=== PATIENT | male | born 2000 | race Caucasian/White ===

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

== ENCOUNTER 2022-04-17 13:29 | Emergency (ER) | payer BC, SELFPAY ==
[2022-04-17 13:59] VITALS: BP 128/70; PULSE 60; RESP 18; TEMP 36.7; O2SAT 100
--- NOTE | 2022-04-17 15:34 | ED.GENADULT ---
HPI - General Adult General Chief complaint: Upper Respiratory Infection Stated complaint: flu exposure History of Present Illness HPI narrative: Patient is a 21-year-old male who presents to the the medical center via POV accompanied by girlfriend for evaluation of nausea and fatigue that started yesterday. No relief with DayQuil. Nothing worsens symptoms. He reports his girlfriend recently tested positive for influenza A and mononucleosis prompting today's visit. Related Data Home Medications Medication Instructions Recorded Confirmed cetirizine 10 mg tablet (Zyrtec) 10 mg PO DAILY 04/17/22 04/17/22 Allergies Allergy/AdvReac Type Severity Reaction Status Date / Time amoxicillin Allergy Unknown ITCHY RASH Verified 04/17/22 14:36 Review of Systems Review of Systems: Denies history of COPD, bronchitis, asthma, and pneumonia. Denies current/past tobacco use. Pertinent negatives: fever, sweats, chills, change in appetite, skin color changes, headache, nasal congestion/discharge, dizziness, lymphadenopathy, sinus problems, ear pain/drainage, chest pain, heart murmurs, heart palpitations, shortness of breath, wheezing, cyanosis, hemoptysis, hoarseness, orthopnea, pleuritic pain, vomiting, diarrhea, and myalgias. [facility] Past Medical History Medical History (Updated 04/17/22 @ 15:37 by ARACELIS CarrP, ) Patient denies significant medical history Social History Social History (Updated 01/17/20 @ 04:16 by Luis F Palma DO) Smoking packs per day: 0.5 Smoking cigarettes per day: 10.0 Exam Narrative: GENERAL: Well-appearing, well-nourished, and in no acute distress. HEAD: Normocephalic, atraumatic. No sinus tenderness or facial swelling appreciated. EYES: PERRLA and EOMI. No evidence of erythema, swelling, or drainage. ENT: Bilateral external ears and ear canals normal. Bilateral TMs are normal.No TM perforation. Nares clear, no rhinorrhea or epistaxis. Bilateral turbinates without erythema/ swelling. Mucous membranes moist and pink. Uvula is midline without erythema and swelling. No evidence of petechial rash, cobblestoning, lesions, ulcers, erythema, swelling, exudates, peritonsillar abscess, tenting, or drooling. Breath odor and voice normal. NECK: Supple. No Lymphadenopathy or nuchal rigidity appreciated. CHEST: Bilateral lung schwarz are clear to auscultation. No respiratory distress. No evidence of pleuritic cp upon examination. Mild dry cough appreciated upon examination. HEART: Regular rate and rhythm. No murmur, gallop, or rub heard. EXTREMITIES: Normal range of motion. No edema. SKIN: Warm, dry, no rash. NEURO: No focal deficits. Alert and oriented x3. Course Course Level of Care: Express Care Visit Vital Signs Vital signs: Vital Signs Temperature 98.1 F 04/17/22 13:59 Pulse Rate 60 04/17/22 13:59 Respiratory Rate 18 04/17/22 13:59 Blood Pressure 128/70 04/17/22 13:59 Pulse Oximetry 100 04/17/22 13:59 Oxygen Delivery Room Air 04/17/22 13:59 Temperature 98.1 F 04/17/22 13:59 Pulse Rate 60 04/17/22 13:59 Respiratory Rate 18 04/17/22 13:59 Blood Pressure 128/70 04/17/22 13:59 Pulse Oximetry 100 04/17/22 13:59 Oxygen Delivery Room Air 04/17/22 13:59 Medical Decision Making Differential Diagnosis Differential Diagnosis: Allergic rhinitis, ABRS, acute viral sinusitis, strep pharyngitis, nasopharyngitis, bronchitis, pneumonia, AOM, otitis externa, viral URI, influenza, covid-19, mononucleosis Vital Signs Vital Signs: Vital Signs Temperature 98.1 F 04/17/22 13:59 Pulse Rate 60 04/17/22 13:59 Respiratory Rate 18 04/17/22 13:59 Blood Pressure 128/70 04/17/22 13:59 Pulse Oximetry 100 04/17/22 13:59 Oxygen Delivery Room Air 04/17/22 13:59 Temperature 98.1 F 04/17/22 13:59 Pulse Rate 60 04/17/22 13:59 Respiratory Rate 18 04/17/22 13:59 Blood Pressure 128/70 04/17/22 13:59 Pulse Oximetry 100
== END 2022-04-17 15:46 | disposition home or self-care (01) ==
PROVIDERS: Emergency Provider Nurse Practitioner Family
DX: B27.90 Infectious mononucleosis, unspecified without complication (principal); Z20.828 Contact with and (suspected) exposure to other viral communicable diseases
CPT/HCPCS: 36416; 86308; 87081; 87804; 87880; 99213; G0463

== ENCOUNTER 2023-12-06 08:04 | Emergency (ER) | payer BC, SELFPAY ==
[2023-12-06 08:44] VITALS: BP 117/68; PULSE 59; RESP 16; TEMP 36.7; O2SAT 100
--- NOTE | 2023-12-06 08:54 | ED.GENADULT ---
HPI - General Adult General Chief complaint: Nausea/Vomiting/Diarrhea Stated complaint: nausea,not feeling well Source: patient Mode of arrival: ambulatory Limitations: no limitations History of Present Illness HPI narrative: Patient presents for evaluation of GI symptoms for last 2 days. Symptoms include nausea, vomiting, diarrhea. He also has some epigastric pain that he states feels uncomfortable without numerical rating. No fever, chills, cough, sore throat, otalgia. No recent sick contacts to his knowledge. Thought his symptoms were related to eating Arabic food. He called off of work and is here requesting a work note. Related Data Allergies Allergy/AdvReac Type Severity Reaction Status Date / Time amoxicillin AdvReac Mild Rash Verified 12/06/23 08:22 Review of Systems Review of Systems: CONSTITUTIONAL: Denies fever, chills, or sweats. EYES: Denies visual changes, redness, or discharge. ENT: Denies rhinorrhea, congestion, sore throat, or otalgia. CARDIOVASCULAR: Denies chest pain, palpitations, or edema. RESPIRATORY: Denies cough or dyspnea. GASTROINTESTINAL: Reports nausea, vomiting, epigastric discomfort and diarrhea GENITOURINARY: Denies dysuria or hematuria. SKIN: Denies rash or itching. MUSCULOSKELETAL: Denies back pain, joint pain, or myalgia. NEUROLOGIC: Denies headache, numbness, dizziness, or weakness. PSYCHIATRIC: Denies anxiety or depression. [facility] Past Medical History Medical History (Updated 12/06/23 @ 09:13 by Kp Alejandra, RAFA, ) Diarrhea Patient denies significant medical history Surgical History Surgical History No pertinent past surgical history Family History Family History Mother Family history non-contributory Social History Social History Smoking status: Current every day smoker Tobacco type: e-cigarettes/vaping Substance use: current Substance use type: marijuana Gender identity (if verbalized by the patient): Male Spiritual care concerns: No Exam Narrative: GENERAL: Well-appearing, well-nourished, and in no acute distress. HEAD: Normocephalic, atraumatic. EYES: PERRLA and EOMI. ENT: Nares clear, no rhinorrhea or epistaxis. Mucous membranes moist. Oropharynx without tonsillar hypertrophy exudate or other lesions. Bilateral TMs pearly mott nonbulging NECK: Supple. No adenopathy or masses. No carotid bruits or JVD CHEST: Clear to auscultation. No respiratory distress. No wheezes rales or rhonchi HEART: Regular rate and rhythm. No murmur heard. Normal peripheral pulses. ABDOMEN: Soft, nondistended, normal active bowel sounds. Epigastric tenderness without rebound or guarding EXTREMITIES: Normal range of motion. No edema. SKIN: Warm, dry, no rash. NEURO: No focal deficits. Alert and oriented x3. PSYCH: Normal mood and affect. Course Course Emergency Course: This is a 23-year-old male who presented for evaluation of nausea, vomiting, diarrhea. Influenza was negative. He does not feel like he needs to go to the emergency department. Will discharge with lomotil and zofran. increase hydration. follow-up with primary provider. Go to the ER for worsening symptoms. Patient in agreement with plan of care. Level of Care: Express Care Visit Vital Signs Vital signs: Vital Signs Temperature 36.7 C 12/06/23 08:44 Pulse Rate 59 L 12/06/23 08:44 Respiratory Rate 16 12/06/23 08:44 Blood Pressure 117/68 12/06/23 08:44 Pulse Oximetry 100 12/06/23 08:44 Oxygen Delivery Room Air 12/06/23 08:44 Temperature 36.7 C 12/06/23 08:44 Pulse Rate 59 L 12/06/23 08:44 Respiratory Rate 16 12/06/23 08:44 Blood Pressure 117/68 12/06/23 08:44 Pulse Oximetry 100 12/06/23 08:44 Oxygen Delivery Room Air 12/06/23 08:44 Medical Decisio
== END 2023-12-06 09:15 | disposition home or self-care (01) ==
PROVIDERS: Emergency Provider Nurse Practitioner
DX: R11.2 Nausea with vomiting, unspecified (principal); F17.290 Nicotine dependence, other tobacco product, uncomplicated; F12.90 Cannabis use, unspecified, uncomplicated
CPT/HCPCS: 87804; 99213; G0463

== ENCOUNTER 2024-04-12 08:25 | Emergency (ER) | payer BC, SELFPAY ==
--- NOTE | 2024-04-12 08:34 | ED.URI ---
HPI - URI/Sore Throat General Chief Complaint: Upper Respiratory Infection Stated Complaint: sore throat Time Seen by Provider: 04/12/24 08:34 Source: patient Mode of arrival: ambulatory Limitations: no limitations History of Present Illness HPI Narrative: Ed is a 23-year-old male patient presenting to the clinic today with complaints of a sore throat that started this morning. He reports he has been exposed to strep at work. He currently works as a teacher at a daycare. No fever, chills, runny nose, cough, or nasal congestion. MD elicited complaint: sore throat Related Data Allergies Allergy/AdvReac Type Severity Reaction Status Date / Time amoxicillin AdvReac Mild Rash Verified 12/06/23 08:22 Review of Systems Review of Systems: Pertinent positives per HPI. Patient denies any fever, chills, rash, headache, visual changes, dizziness, cough, runny nose, shortness of breath, chest pain, palpitations, nausea, vomiting, diarrhea, constipation, abdominal pain, or any urinary issues. PMFSH Past Medical History Medical History Diarrhea Patient denies significant medical history Surgical History Surgical History No pertinent past surgical history Family History Family History Mother Family history non-contributory Social History Social History Smoking status: Current every day smoker Tobacco type: e-cigarettes/vaping Substance use: current Substance use type: marijuana Gender identity (if verbalized by the patient): Male Spiritual care concerns: No Comments At the time of my signature, I reviewed and agree with the nursing past medical, surgical, social, and family history. There is no relevant family history pertinent to the patient complaint. Exam Narrative: General: Well-developed, well nourished, in no apparent distress Head: Normocephalic, atraumatic Eyes: Pupils equally round and reactive to light bilaterally, EOM intact, sclera and conjunctive clear, no discharge, lids normal Ears: TMs intact and clear, ear canals clear, no drainage, grossly hearing normal. Nose: Nares patent, no discharge, no inflammation, no sinus tenderness. Mouth: Oral pharynx red without lesions or masses, good dentition, MMM. Neck: Supple, trachea midline, no enlargement of anterior or posterior cervical nodes, no thyroid masses or goiter palpable. Cardio: Regular rate and rhythm, s1 and s2 normal, no murmur appreciated. Resp: Clear to auscultation bilaterally, no rhonchi, rales, wheezing or rubs Course Course Emergency Course: Portions of this record may have been created with voice recognition software. Level of Care: Express Care Visit Vital Signs Vital signs: Vital signs reviewed MDM - URI/Sore Throat MDM Narrative Medical decision making narrative: At the time of visit patient is resting comfortably on the exam table. Patient appears to be nontoxic. Labs: Strep test was performed and was positive in the clinic today. Plan: I suspect patient has strep pharyngitis. Prescription for azithromycin was sent to the pharmacy as patient has an allergy to amoxicillin. Supportive measures were discussed with the patient and they voiced understanding discharge instructions and agrees to treatment plan. Return precautions reviewed Differential Diagnosis Differential diagnosis: Likely upper respiratory infection, otitis media, sinusitis, viral infection, bronchitis, influenza, pharyngitis and other (COVID) Discharge Plan Discharge Clinical Impression: Acute streptococcal pharyngitis Patient Disposition: Home, Self-Care Condition: Stable Instructions: Antibiotic Form, Strep Throat (ED) Additional Instructions: Take prescription medications only as presc
[2024-04-12 08:47] VITALS: BP 128/56; PULSE 84; RESP 18; TEMP 36.8; O2SAT 100
[2024-04-12 09:08] LABS: EDSTREPNEGPOS1 Positive
== END 2024-04-12 09:15 | disposition home or self-care (01) ==
PROVIDERS: Emergency Provider Nurse Practitioner Family; PCP Emergency Medicine
DX: J02.0 Streptococcal pharyngitis (principal); F17.290 Nicotine dependence, other tobacco product, uncomplicated
CPT/HCPCS: 87880; 99213; G0463